=== PATIENT | female | born 2005 | race Caucasian/White ===

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

== ENCOUNTER → 2024-04-06 | Outpatient (CLI) | payer OTHER ==
--- NOTE | 2024-04-06 13:12 | CA ---
Exercise Stress Test Report Name: Jorge Pereyra Exam Date: 04/06/2024 10:58 Exam Location: [facility] Stress Ht (in): 66 Wt (lb): 128 BSA: 1.65 Ordering Phys: Wesly Castillo MD Referring Phys: Madina Cote [facility], [facility] Technologist: Db Landers Age: 18 Gender: F : 2005 Procedure CPT: Indications: R07.9,R00.2 PALPITATIONS ICD-10 Codes: Patient History: CHEST PAIN, DIFFICULTY IN BREATHING, PALPITATIONS, CURRENT SMOKER (VAPE) X 5 YEARS, ASTHMA Medications: ASTHMA INHALER Meds past 24 hrs: Pretest Chest Pain: STRESS TEST Carlos Protocol Exercise Duration (min:sec): 08:[address] Depressions (mm): Angina Score: West Score: Resting HR (bpm): 89 Peak HR (bpm): 152 Resting BP (mmHg): 104 / 69 Peak BP (mmHg): 141 / 76 MPHR: 200 Target HR: 170 % MPHR: 76 METS: 10.3 Total Dose: Peak Dose: Atropine: Double Product: 25493 BP Response: Stress Termination: Dizziness, PT UNABLE TO SAFELY CONTINUE, TEST TERMINATED Stress Symptoms: DIZZINESS,FLUSHED. Stress Summary: ECG ANALYSIS Resting ECG: Stress ECG: CONCLUSIONS Patient underwent exercise stress EKG with a Carlos protocol treadmill stress test. Patient exercised into Stage 2 for a total of minutes and 47 seconds reaching a total of 10.3 METS. Patient's maximum heart rate was 152 which represented 76% age- predicted maximum heart rate. Patient experienced dizziness and feeling flushed and unable to complete trouble test. Blood pressure adequately increase with exercise from 104 systolic up to 144. Stress EKG findings: At baseline patient's EKG showed normal sinus rhythm, normal axis, no significant ST or T wave abnormalities. At peak exercise, EKG showed significant change from baseline. Conclusions: 1. Technically inadequate stress test given inability to reach 85% maximum predicted heart rate 2. However at 76% maximum predicted heart rate, normal EKG response to exercise without evidence of inducible ischemia. 2. Fair exercise capacity. Dr. Ravinder Jara DO (Electronically Signed) Final Date: 06 Apr 2024 13:12
== END | disposition home or self-care (01) ==
LOC: RADNMMAIN 10:01
PROVIDERS: ATTEND Family Medicine
DX: R07.9 Chest pain, unspecified (principal); R00.2 Palpitations
CPT/HCPCS: 93017

== ENCOUNTER 2024-09-06 09:56 | Day surgery (SDC) | payer OTHER ==
[2024-08-31 14:02] VITALS: BMI 19.5
[~2024-09-06 09:56] MED LIST: LACTATED RINGERS 1,000 ML IV SCH
[2024-09-06] MEDS: SODIUM CHLORIDE 0.9% 1,000 ML IV SCH ×2 (10:34→17:10)
[2024-09-06] MEDS: IV FLUID CONTINUATION 1,000 ML IV ONE (10:34)
[2024-09-06 10:51] LABS: Basophils # (A) 0.1 k/uL (0-0.2); Basophils % (A) 0 %; Eosinophils # (A) 0.2 k/uL (0-0.7); Eosinophils % (A) 2 %; HCT 47.2 % (34.0-46.0); HGB 15.3 gm/dL (11.4-16.0); Lymphocytes # (A) 2.5 k/uL (1.0-4.8); Lymphocytes % (A) 22 %; MCHC 32.4 g/dL (31.0-37.0); MCV 92.4 fL (80.0-100.0); Mean Platelet Volume 9.3; Monocytes # (A) 0.3 k/uL (0-1.0); Monocytes % (A) 3 %; Neutrophils # (A) 8.3 k/uL (1.3-7.7); Neutrophils % (A) 73 %; Platelet Count 241 k/uL (150-450); RBC 5.11 m/uL (3.80-5.40); RDW 13.1 % (11.5-15.5); WBC 11.5 k/uL (3.8-10.6)
[2024-09-06 10:55] LABS: African American GFR (CKD) >90 (>60 ml/min/1.73 sqM); Anion Gap 6 mmol/L; Blood Urea Nitrogen 13 mg/dL (7-17); Calcium 9.7 mg/dL (8.4-10.2); Carbon Dioxide 29 mmol/L (22-30); Chloride 104 mmol/L (98-107); Glucose 88 mg/dL (74-99); Non-African American GFR(CKD) >90 (>60 ml/min/1.73 sqM); Potassium 4.2 mmol/L (3.5-5.1); Sodium 139 mmol/L (137-145)
[2024-09-06] MEDS: SODIUM CHLORIDE 0.9% 1,000 ML IV ONE (12:18)
[2024-09-06] MEDS ORDERED: ISOPROTERENOL 250 MCG/1.25 ML SYR IV ONE (13:56)
[2024-09-06] MEDS ORDERED: PROPOFOL 10 MG/ML 20 ML VIAL IV ONE (13:56)
[2024-09-06] MEDS ORDERED: fentaNYL (PF) 50 MCG/ML 2 ML AMP ONE (13:56)
[2024-09-06] MEDS ORDERED: MIDAZOLAM 2 MG/2 ML VIAL ONE (13:56)
--- NOTE | 2024-09-06 14:12 | P.HPCAR ---
History of Present Illness This is Dr. Wooten dictating an H/P on this patient The patient was interviewed and examined IMPRESSION / ASSESSMENT: Recurrent palpitations Recurrent presyncopal spells and syncope Tilt table test did not reveal neurocardiogenic syncope PLAN: Diagnostic EP study and radiofrequency ablation HPI Recurrent sweatiness nausea and palpitations. History of LOC No recent loss of consciousness ROS: No fever chills or rigors, no cough, phlegm or expectoration, no nausea, vomiting or diarrhea, no hematuria, dysuria, no musculoskeletal complaints, no strokes or seizures, no skin lesions. EXAMINATION: Pulse rate 71, respiratory rate 16, blood pressure 128/99 mmHg Breath sounds are clear no rhonchi no crackles Heart sounds S1-S2 normal no murmurs or gallop no rub No lower extremity edema REVIEW OF LABS, ECG & MEDICAL DATA White count 11,000, hemoglobin 15, hematocrit 47.2 Sodium 139, potassium 4.2 BUN 13 and creatinine 0.87 TSH 3.5 Physical Exam Vitals: Vital Signs Temp Pulse Resp BP BP Pulse Ox 09/06/24 12:21 71 16 128/99 98 09/06/24 10:29 98 F 93 18 111/66 127/79 98 Intake and Output 09/05/24 09/06/24 09/06/24 22:59 06:59 14:59 Intake Total 120 Balance 120 Intake: IV 120 Other: Weight 56.1 kg Past Medical History Past Medical History: Asthma, CVA/TIA, GERD/Reflux, Supraventricular Tachycardia (SVT) Additional Past Medical History / Comment(s): hepatitis b, SEE DR. WOOTEN'S H & P, History of Any Multi-Drug Resistant Organisms: None Reported Past Surgical History: Adenoidectomy, Appendectomy, Tonsillectomy Additional Past Surgical History / Comment(s): hepatitis b Past Anesthesia/Blood Transfusion Reactions: No Reported Reaction Smoking Status: Vaper - Past Family History Mother History Unknown: Yes Family Medical History: No Reported History Father Additional Family Medical History / Comment(s): Appendicitis in late 20s Physical Examination Vital Signs Temp Pulse Resp BP BP Pulse Ox 09/06/24 12:21 71 16 128/99 98 09/06/24 10:29 98 F 93 18 111/66 127/79 98 Intake and Output 09/05/24 09/06/24 09/06/24 22:59 06:59 14:59 Intake Total 120 Balance 120 Intake: IV 120 Other: Weight 56.1 kg Results 09/06/24 10:21 09/06/24 10:21 CBC 09/06/24 Range/Units 10:21 WBC 11.5 H (3.8-10.6) k/uL RBC 5.11 (3.80-5.40) m/uL Hgb 15.3 (11.4-16.0) gm/dL Hct 47.2 H (34.0-46.0) % Plt Count 241 (150-450) k/uL Comprehensive Metabolic Panel 09/06/24 Range/Units 10:21 Sodium 139 (137-145) mmol/L Potassium 4.2 (3.5-5.1) mmol/L Chloride 104 (98-107) mmol/L Carbon Dioxide 29 (22-30) mmol/L BUN 13 (7-17) mg/dL Creatinine 0.87 (0.52-1.04) mg/dL Glucose 88 (74-99) mg/dL Calcium 9.7 (8.4-10.2) mg/dL Current Medications Generic Name Dose Route Start Last Admin Trade Name Freq PRN Reason Stop Dose Admin Sodium Chloride 1,000 mls @ 20 mls/hr 09/06/24 06:05 09/06/24 10:34 Saline 0.9% IV 10/06/24 06:04 20 mls/hr .Q24H ZACHARY Administration Sodium Chloride 1,000 mls @ 20 mls/hr 09/06/24 06:05 Saline 0.9% IV 10/06/24 06:04 .Q24H ZACHARY Lactated Ringer's 1,000 mls @ 20 mls/hr 09/06/24 06:05 Lactated Ringers IV 10/06/24 06:04 .Q24H ZACHARY Intake and Output 09/05/24 09/06/24 09/06/24 22:59 06:59 14:59 Intake Total 120 Balance 120 Intake: IV 120 Other: Weight 56.1 kg Patient Weight 09/07/24 06:59 Weight 56.1 kg 09/06/24 10:21 09/06/24 10:21
--- NOTE | 2024-09-06 14:15 | P.EPPROC ---
- EP Procedure Note Electrophysiology Procedure Note: Diagnosis Recurrent syncope Twelve-lead EKG shows sinus rhythm normal OK and narrow QRS no delta waves normal QT interval Tilt table test per protocol Baseline heart rate 76 beats minute, baseline blood pressure 119/74 mmHg Patient was tilted upright at an angle of 70 degrees per protocol. Heart rate increased to 118 beats a minute of blood pressure was elevated She complained of feeling hot numbness around the mouth. Patient was crying, mouth was tingling hands with tingling face was tingling muscles were twitching all over Heart rate remained between 120 230 beats minute blood pressure was also elevated When she was laid supine all symptoms improved Heart rate came down to 104 beats minute and blood pressure 128/80 mmHg Impression Normal twelve-lead EKG No evidence for neurocardiogenic syncope Elevated heart rate and blood pressure with upright position
[2024-09-06] MEDS: LIDOCAINE 1% INJ 10MG/ML (20 ML MDV) SQ ONE (14:24)
--- NOTE | 2024-09-06 16:03 | P.EPPROC ---
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 Written informed consent was obtained prior to the procedure. Venous sheaths were placed in the left femoral vein and via these diagnostic catheters were positioned in the high right atrium His bundle area right ventricle and the coronary sinus. The study was performed both at baseline and on Isopril high-dose. Sinus node recovery times were 856, 813 and 759 ms AV node Wenckebach block 410 ms VA Wenckebach block 510 ms Aniyah response to Para-Hisian pacing Occasional right bundle branch block aberrancy with atrial pacing No arrhythmias induced with atrial stimulation at the baseline state High-dose Isopril infused A full EP study performed with straight pacing from the high right atrium, coronary sinus and right ventricle Extrastimulation up to triple extrastimuli from the high right atrium and the coronary sinus Extrastimulation from the right ventricle Burst stimulation from the high right atrium, coronary sinus and right ventricle No inducible arrhythmias No evidence for atrial tachycardia, AV aniyah reentry, accessory pathway conduction or atrial fibrillation or ventricular tachycardia All catheters removed hemostasis achieved with Vascade closure device Patient tolerated procedure well without any acute complications
[2024-09-06] MEDS ORDERED: BENZONATATE 100 MG CAP PO PRN (16:05)
[2024-09-06] MEDS: ACETAMINOPHEN IV (For NPO) 1,000 MG in EMPTY BAG 1 BAG IVPB ONE (17:13)
--- NOTE | 2024-09-06 17:21 | P.PRLE ---
RE: Jorge Pereyra Dear Katrina Jorge Pereyra has a history of dizzy spells near syncope and palpitations. His symptoms are severe enough that once when she was on a flight, an emergency landing had to be performed. She underwent a tilt table test which showed elevation of heart rate and blood pressure, consistent with anxiety. She then underwent a diagnostic EP study. We performed a very detailed study on and off Isopril and there were no inducible supraventricular or ventricular arrhythmias. While she may have vasovagal syncope/presyncope, this could not be induced on the tilt table test despite the fact that her heart rate was elevated. I would recommend a psychological /psychiatric evaluation to help her Thank you for entrusting me with the care of the patient Warm regards Sincerely Gino Wooten transfer tech
[2024-09-06] MEDS: PROPRANOLOL 20 MG TAB PO SCH (19:56)
[2024-09-07 01:41] VITALS: RESP 18
[2024-09-07] MEDS: ACETAMINOPHEN TAB 325 MG TAB PO PRN (09:32)
[2024-09-07 09:52] VITALS: BP 100/68; PULSE 72; TEMP 97.6
--- NOTE | 2024-09-07 09:56 | P.DS ---
Providers Date of admission: 09/06/24 Attending physician: Gino Wooten Primary care physician: Katrina [facility] Course: Patient is a 19-year-old female who underwent tilt table testing and EP study for palpitations and presyncope. No inducible arrhythmias found on EP study despite high dose Isopril. Tilt table testing showed elevations in heart rate with upright tilting with elevations in blood pressure. No evidence for neurocardiogenic syncope. Patient interviewed and examined resting comfortably in bed. No complaints overnight. GENERAL: Well-appearing, well-nourished and in no acute distress. NECK: Supple without JVD or thyromegaly. LUNGS: Breath sounds clear to auscultation bilaterally. Respiration equal and unlabored. No wheezes, rales or rhonchi. HEART: Regular rate and rhythm without murmurs, rubs or gallops. S1 and S2 heard. EXTREMITIES: Normal range of motion, no edema. No clubbing or cyanosis. Peripheral pulses intact and strong. Left groin site shows no evidence of hematoma. TELEMETRY: Sinus rhythm overnight IMPRESSION: Palpitations, no arrhythmias inducible on EP study Presyncope, not inducible on tilt table testing Elevation in heart rate and blood pressure on tilt table testing PLAN: Patient may be discharged Outpatient follow-up in 1 week I am dictating on behalf of Dr Gino Wooten's history/physical and assessment/plan. Plan - Discharge Summary Discharge Rx Participant: Yes New Discharge Prescriptions: No Action Benzonatate [Tessalon Perles] 100 mg PO TID PRN PRN Reason: Cough Propranolol [Inderal] 20 mg PO BID Discharge Medication List Benzonatate [Tessalon Perles] 100 mg PO TID PRN 08/31/24 [History] Propranolol [Inderal] 20 mg PO BID 08/31/24 [History] Follow up Appointment(s)/Referral(s): Gino Wooten MD [STAFF PHYSICIAN] - 1 Week Patient Instructions/Handouts: Tilt Table Test (DC) Discharge Disposition: HOME SELF-CARE
== END 2024-09-07 12:33 | disposition home or self-care (01) ==
LOC: CATHEP 09:56 → 6NMEDSUR 15:09 → CATHEP 09-07 12:33
PROVIDERS: ATTEND Internal Medicine Clinical Cardiac Electrophysiology
DX: I47.10 Supraventricular tachycardia, unspecified (principal); I45.10 Unspecified right bundle-branch block; I44.1 Atrioventricular block, second degree; J45.909 Unspecified asthma, uncomplicated; K21.9 Gastro-esophageal reflux disease without esophagitis; I67.9 Cerebrovascular disease, unspecified; G40.89 Other seizures; F17.200 Nicotine dependence, unspecified, uncomplicated; U07.0 Vaping-related disorder; Z90.89 Acquired absence of other organs; Z90.49 Acquired absence of other specified parts of digestive tract; Z86.73 Personal history of transient ischemic attack (TIA), and cerebral infarction without residual deficits; Z79.1 Long term (current) use of non-steroidal anti-inflammatories (NSAID); Z79.899 Other long term (current) drug therapy; Z88.8 Allergy status to other drugs, medicaments and biological substances
CPT/HCPCS: 93623; 93621; 93620; 93660; 86900; 86901; 80048; 84443; 85025; 86850; 81025; C1894; C1769; C1760; C1730 ×3; J2250; J2003; J3010; J0131; J2704

== ENCOUNTER 2024-09-23 23:54 | Emergency (ER) | payer OTHER ==
[2024-09-24 00:02] VITALS: TEMP 98.2
[2024-09-24 00:22] LABS: Basophils % (A) 0 %; Eosinophils # (A) 0.2 k/uL (0-0.7); Eosinophils % (A) 2 %; HCT 43.1 % (34.0-46.0); Lymphocytes # (A) 2.9 k/uL (1.0-4.8); Lymphocytes % (A) 29 %; MCHC 32.6 g/dL (31.0-37.0); MCV 92.1 fL (80.0-100.0); Mean Platelet Volume 9.7; Monocytes # (A) 0.4 k/uL (0-1.0); Monocytes % (A) 4 %; Neutrophils # (A) 6.4 k/uL (1.3-7.7); Neutrophils % (A) 64 %; Platelet Count 213 k/uL (150-450); RBC 4.68 m/uL (3.80-5.40); RDW 12.9 % (11.5-15.5)
[2024-09-24 00:44] LABS: ALT 10 U/L (4-34); AST 22 U/L (14-36); African American GFR (CKD) >90 (>60 ml/min/1.73 sqM); Albumin 4.6 g/dL (3.5-5.0); Alkaline Phosphatase 46 U/L (38-126); Amylase 63 U/L (30-110); Anion Gap 5 mmol/L; Blood Urea Nitrogen 12 mg/dL (7-17); Calcium 9.5 mg/dL (8.4-10.2); Carbon Dioxide 27 mmol/L (22-30); Chloride 106 mmol/L (98-107); Glucose 84 mg/dL (74-99); Lipase 135 U/L (23-300); Non-African American GFR(CKD) >90 (>60 ml/min/1.73 sqM); Potassium 4.7 mmol/L (3.5-5.1); Sodium 138 mmol/L (137-145); Total Bilirubin 0.5 mg/dL (0.2-1.3); Total Protein 7.1 g/dL (6.3-8.2)
--- NOTE | 2024-09-24 01:15 | ED ---
Abdominal Pain HPI - General Chief Complaint: Abdominal Pain Stated Complaint: abd pain Time Seen by Provider: 09/24/24 01:13 Source: patient, RN notes reviewed Mode of arrival: EMS Limitations: no limitations - History of Present Illness Initial Comments: 19-year-old female with history of endometriosis presenting to the ER with chief complaint of pelvic pain x 1 day. States she started her menstrual period yesterday and is having severe pelvic cramping today radiating to the back and down the legs. States this feels similar to previous menstrual cramping on first 1 to 2 days of menstrual period. States she has taken Tylenol and Midol today with no relief and is requesting pain control today. Denies nausea, vomiting, vaginal discharge, fever, urinary symptoms, . - Related Data Home Medications Medication Instructions Recorded Confirmed Benzonatate [Tessalon Perles] 100 mg PO TID PRN 08/31/24 09/06/24 Propranolol [Inderal] 20 mg PO BID 08/31/24 09/06/24 Allergies Allergy/AdvReac Type Severity Reaction Status Date / Time amphetamine [From Adderall] Allergy Unknown Verified 09/23/24 23:58 dextroamphetamine Allergy Unknown Verified 09/23/24 23:58 [From Adderall] ibuprofen AdvReac dizzy Verified 09/23/24 23:58 [place] [employer]ESS[employer] Allergy Rash/Hives Uncoded 09/23/24 23:58 Review of Systems ROS Statement: Those systems with pertinent positive or pertinent negative responses have been documented in the HPI. ROS Other: All systems not noted in ROS Statement are negative. Past Medical History Past Medical History: Asthma, CVA/TIA, GERD/Reflux, Supraventricular Tachycardia (SVT) Additional Past Medical History / Comment(s): hepatitis b, SEE [facility]IE[facility]S H & P, History of Any Multi-Drug Resistant Organisms: None Reported Past Surgical History: Adenoidectomy, Appendectomy, Tonsillectomy Additional Past Surgical History / Comment(s): hepatitis b Past Anesthesia/Blood Transfusion Reactions: No Reported Reaction Past Psychological History: Bipolar, Depression Smoking Status: Vaper Past Alcohol Use History: Occasional Past Drug Use History: Marijuana - Past Family History Mother History Unknown: Yes Family Medical History: No Reported History Father Additional Family Medical History / Comment(s): Appendicitis in late 20s General Exam Limitations: no limitations General appearance: alert, in no apparent distress Head exam: Present: atraumatic, normocephalic, normal inspection GI/Abdominal exam: Present: soft, normal bowel sounds. Absent: distended, tenderness, guarding, rebound, rigid Back exam: Present: normal inspection. Absent: CVA tenderness (R), CVA tenderness (L), rash noted Neurological exam: Present: alert, oriented X3 Psychiatric exam: Present: normal affect, normal mood Skin exam: Present: warm, dry, intact, normal color. Absent: rash Course Vital Signs 09/23/24 23:58 Temperature 98.2 F Pulse Rate 53 L Respiratory 18 Rate Blood Pressure 119/82 O2 Sat by Pulse 98 Oximetry Medical Decision Making - Medical Decision Making Was pt. sent in by a medical professional or institution (LORENZO Velez, ASSISTANT CUSTOMER SERVICE MANAGER, urgent care, hospital, or snf...) When possible be specific @ -No Did you speak to anyone other than the patient for history (EMS, parent, family, police, friend...)? What history was obtained from this source @ -No Did you review nursing and triage notes (agree or disagree)? Why? @ -I reviewed and agree with nursing and triage notes Were old charts reviewed (outside hosp., previous admission, EMS record, old EKG, old radiological studies, urgent care reports/EKG's, snf records)? Report findings @ -No old charts were reviewed Differential Diagnosis (chest pain, altered mental status, abdominal pain women, abdominal pain men, vaginal bleeding, weakness, fever, dyspnea, syncope, headache, dizziness, GI bleed, back pain, seizure, CVA, palpatations, mental health, musculoskeletal)? @ -Differential Abdominal Pain Women: Appendicitis, Cholecystitis, diverticulosis, ischemic bowel, pancreatitis, hepatitis, UTI, gastroenteritis, AAA, incarcerated hernia, bowel obstruction, constipation, inflammatory bowel, hepatitis, peptic ulcer disease, splenic infarction, perforated viscus, vulvitis, ovarian torsion, PID, kidney stone, placenta abruption, this is not meant to be an all-inclusive list EKG interpreted by me (3pts min.). @ -None X-rays interpreted by me (1pt min.). @ -None done CT interpreted by me (1pt min.). @ -None done U/S interpreted by me (1pt. min.). @ -None done What testing was considered but not performed or refused? (CT, X-rays, U/S, labs)? Why? @ -Urinalysis/urine ordered but patient refused What meds were considered but not given or refused? Why? @ -None Did you discuss the management of the patient with other professionals (professionals i.e. , PA, ASSISTANT CUSTOMER SERVICE MANAGER, lab, RT, psych nurse, nursing home social worker, automotive salesperson, teacher, tactical debriefer officer, disease case manager rn)? Give summary @ -No Was smoking cessation discussed for >3mins.? @ -No Was critical care preformed (if so, how long)? @ -No Were there social determinants of health that impacted care today? How? (Homelessness, low income, unemployed, alcoholism, drug addiction, transportation, low edu. Level, literacy, decrease access to med. care, care home, rehab)? @ -No Was there de-escalation of care discussed even if they declined (Discuss DNR or withdrawal of care, Hospice)? DNR status @ -No What co-morbidities impacted this encounter? (DM, HTN, Smoking, COPD, CAD, Cancer, CVA, ARF, Chemo, Hep., AIDS, mental health diagnosis, sleep apnea, morbid obesity)? @ -None Was patient admitted / discharged? Hospital course, mention meds given and route, prescriptions, significant lab abnormalities, going to OR and other pertinent info. @ -Discharge. This is a 19-year-old female with history of endometriosis presenting with pelvic pain x 1 day. Patient started menstrual period yesterday. Vital signs remarkable for bradycardia, otherwise unremarkable. Abdomen is soft and nontender. Patient is provided with IV fluids and Toradol. Lab work including CBC, CMP, lactic acid unremarkable. Urinalysis/urine ordered however patient states she cannot give a sample. Patient reports symptoms have improved and would like to be discharged. I believe it is safe to discharge patient home with strict return precautions. Case was discussed with my ED attending Dr. Daily. Patient discharged in stable condition. Undiagnosed new problem with uncertain prognosis? @ -No Drug Therapy requiring intensive monitoring for toxicity (Heparin, Nitro, Insulin, Cardizem)? @ -No Were any procedures done? @ -No Diagnosis/symptom? @ -Dysmenorrhea Acute, or Chronic, or Acute on Chronic? @ -Acute Uncomplicated (without systemic symptoms) or Complicated (systemic symptoms)? @ -Uncomplicated Side effects of treatment? @ -No Exacerbation, Progression, or Severe Exacerbation? @ -No Poses a threat to life or bodily function? How? (Chest pain, USA, ID, pneumonia, PE, COPD, DKA, ARF, appy, cholecystitis, CVA, Diverticulitis, Homicidal, Suicidal, threat to staff... and all critical care pts) @ -No - Lab Data Result diagrams: 09/24/24 00:10 09/24/24 00:10 Lab Results 09/24/24 09/24/24 09/24/24 Range/Units 00:10 00:10 00:10 WBC 10.0 (3.8-10.6) k/uL RBC 4.68 (3.80-5.40) m/uL Hgb 14.0 (11.4-16.0) gm/dL Hct 43.1 (34.0-46.0) % MCV 92.1 (80.0-100.0) fL MCH 30.0 (25.0-35.0) pg MCHC 32.6 (31.0-37.0) g/dL RDW 12.9 (11.5-15.5) % Plt Count 213 (150-450) k/uL MPV 9.7 Neutrophils % 64 % Lymphocytes % 29 % Monocytes % 4 % Eosinophils % 2 % Basophils % 0 % Neutrophils # 6.4 (1.3-7.7) k/uL Lymphocytes # 2.9 (1.0-4.8) k/uL Monocytes # 0.4 (0-1.0) k/uL Eosinophils # 0.2 (0-0.7) k/uL Basophils # 0.0 (0-0.2) k/uL Sodium 138 (137-145) mmol/L Potassium 4.7 (3.5-5.1) mmol/L Chloride 106 (98-107) mmol/L Carbon Dioxide 27 (22-30) mmol/L Anion Gap 5 mmol/L BUN 12 (7-17) mg/dL Creatinine 0.84 (0.52-1.04) mg/dL Est GFR (CKD-EPI)AfAm >90 (>60 ml/min/1.73 sqM) Est GFR (CKD-EPI)NonAf >90 (>60 ml/min/1.73 sqM) Glucose 84 (74-99) mg/dL Plasma Lactic Acid Broderick 1.3 (0.7-2.0) mmol/L Calcium 9.5 (8.4-10.2) mg/dL Total Bilirubin 0.5 (0.2-1.3) mg/dL AST 22 (14-36) U/L ALT 10 (4-34) U/L Alkaline Phosphatase 46 (38-126) U/L Total Protein 7.1 (6.3-8.2) g/dL Albumin 4.6 (3.5-5.0) g/dL Amylase 63 (30-110) U/L Lipase 135 (23-300) U/L Disposition Clinical Impression: Dysmenorrhea Disposition: HOME SELF-CARE Condition: Stable Instructions (If sedation given, give patient instructions): Dysmenorrhea (ED) Additional Instructions: Please return to the Emergency Department if symptoms worsen or any other concerns. Is patient prescribed a controlled substance at d/c from ED?: No Referrals: Katrina Borja DO [Primary Care Provider] - 1-2 days Time of Disposition: 02:48
[2024-09-24] MEDS: KETOROLAC 15 MG/ML 1 ML VIAL IVP STA (01:43)
[2024-09-24] MEDS: SODIUM CHLORIDE 0.9% 500 ML 500 ML IV STA (01:46)
[2024-09-24 03:07] VITALS: BP 110/63; PULSE 82; RESP 16
[2024-09-24 03:15] LABS: Appearance,Urine Turbid (Clear); Bacteria,Urine Rare /hpf; Bilirubin,Urine Negative (Negative); Blood,Urine Moderate (Negative); Color,Urine Light Yellow; Glucose,Urine (UA) Negative (Negative); Ketones,Urine 1+ (Negative); Leukocyte Esterase,Urine Trace (Negative); Mucus,Urine Occasional /hpf; Nitrite,Urine Negative (Negative); Protein,Urine Trace (Negative); RBC,Urine 6 /hpf (0-5); Specific Gravity,Urine 1.032 (1.001-1.035); Squamous Epithelial Cell,Urine 1 /hpf (0-4); Urobilinogen,Urine <2.0 mg/dL (<2.0); WBC,Urine 6 /hpf (0-5)
== END 2024-09-24 03:02 | disposition home or self-care (01) ==
LOC: EC 23:54
DX: N94.6 Dysmenorrhea, unspecified (principal); F17.290 Nicotine dependence, other tobacco product, uncomplicated; Z88.8 Allergy status to other drugs, medicaments and biological substances; Z88.6 Allergy status to analgesic agent
CPT/HCPCS: 36415; 80053; 82150; 83605; 83690; 85025; 81001; 81025; 99284; 96374; 96361; J1885

== ENCOUNTER 2024-11-09 17:57 | Emergency (ER) | payer OTHER ==
[2024-11-09 18:35] LABS: Basophils # (A) 0.1 k/uL (0-0.2); Basophils % (A) 1 %; Eosinophils # (A) 0.1 k/uL (0-0.7); Eosinophils % (A) 1 %; HCT 44.7 % (34.0-46.0); HGB 14.8 gm/dL (11.4-16.0); Lymphocytes % (A) 38 %; MCH 30.3 pg (25.0-35.0); MCV 91.7 fL (80.0-100.0); Mean Platelet Volume 8.9; Monocytes # (A) 0.5 k/uL (0-1.0); Monocytes % (A) 5 %; Neutrophils # (A) 5.8 k/uL (1.3-7.7); Neutrophils % (A) 54 %; Platelet Count 252 k/uL (150-450); RBC 4.88 m/uL (3.80-5.40); RDW 12.5 % (11.5-15.5); WBC 10.7 k/uL (3.8-10.6)
--- NOTE | 2024-11-09 18:39 | XR ---
EXAMINATION TYPE: XR chest 2V DATE OF EXAM: 11/09/2024 6:35 PM COMPARISON: Previous chest radiograph 01/19/2021. CLINICAL INDICATION: Female, 19 years old with history of sob; [facility] TECHNIQUE: XR chest 2V Frontal and lateral views of the chest. FINDINGS: Lungs/Pleura: There is no evidence of pleural effusion, focal consolidation, or pneumothorax. Pulmonary vascularity: Unremarkable. Heart/mediastinum: Cardiomediastinal silhouette is unremarkable. Musculoskeletal: No acute osseous pathology. Other findings: None IMPRESSION: No acute cardiopulmonary disease/process. [facility], , 11/09/2024 6:37 PM
[2024-11-09 18:40] LABS: ALT 13 U/L (4-34); AST 18 U/L (14-36); African American GFR (CKD) >90 (>60 ml/min/1.73 sqM); Albumin 4.6 g/dL (3.5-5.0); Alkaline Phosphatase 51 U/L (38-126); Anion Gap 8 mmol/L; Blood Urea Nitrogen 13 mg/dL (7-17); Calcium 9.8 mg/dL (8.4-10.2); Carbon Dioxide 22 mmol/L (22-30); Chloride 107 mmol/L (98-107); Glucose 117 mg/dL (74-99); Non-African American GFR(CKD) >90 (>60 ml/min/1.73 sqM); Potassium 4.2 mmol/L (3.5-5.1); Sodium 137 mmol/L (137-145); Total Bilirubin 0.3 mg/dL (0.2-1.3)
[2024-11-09 19:54] VITALS: RESP 18
--- NOTE | 2024-11-09 20:19 | ED ---
General Adult HPI - General Chief complaint: Shortness of Breath Stated complaint: seizure Time Seen by Provider: 11/09/24 19:23 Source: patient Mode of arrival: wheelchair Limitations: no limitations - History of Present Illness Initial comments: 19-year-old female presenting for evaluation after syncopal episode. Patient states that she was at a friend's house watching TV when she started to feel "weird" she then states that she passed out, however she remembers all of the incident. She states that she felt her body twitching at times. She does have history of POTS and SVT, she has had an ablation in the past. States that later on she started to had some numbness in the face, hands, and feet. This has since resolved. States that she feels well at this time. No chest pain, difficulty breathing, abdominal pain, nausea, vomiting, headache, vision or hearing changes, weakness - Related Data Home Medications Medication Instructions Recorded Confirmed Benzonatate [Tessalon Perles] 100 mg PO TID PRN 08/31/24 09/06/24 Propranolol [Inderal] 20 mg PO BID 08/31/24 09/06/24 Allergies Allergy/AdvReac Type Severity Reaction Status Date / Time amphetamine [From Adderall] Allergy Unknown Verified 09/23/24 23:58 dextroamphetamine Allergy Unknown Verified 09/23/24 23:58 [From Adderall] ibuprofen AdvReac dizzy Verified 09/23/24 23:58 [place] [employer] Allergy Rash/Hives Uncoded 09/23/24 23:58 Review of Systems ROS Statement: Those systems with pertinent positive or pertinent negative responses have been documented in the HPI. ROS Other: All systems not noted in ROS Statement are negative. Past Medical History Past Medical History: Asthma, Fibromyalgia, GERD/Reflux, Supraventricular Tachycardia (SVT) Additional Past Medical History / Comment(s): hepatitis b, SEE [facility], cardic ablation History of Any Multi-Drug Resistant Organisms: None Reported Past Surgical History: Adenoidectomy, Appendectomy, Tonsillectomy Additional Past Surgical History / Comment(s): hepatitis b, cardiac ablation Past Anesthesia/Blood Transfusion Reactions: No Reported Reaction Past Psychological History: Bipolar, Depression Smoking Status: Vaper Past Alcohol Use History: Occasional Past Drug Use History: Marijuana - Past Family History Mother History Unknown: Yes Family Medical History: No Reported History Father Additional Family Medical History / Comment(s): Appendicitis in late 20's General Exam Limitations: no limitations General appearance: alert, in no apparent distress Head exam: Present: atraumatic, normocephalic, normal inspection Eye exam: Present: normal appearance, EOMI Neck exam: Present: normal inspection. Absent: meningismus Respiratory exam: Present: normal lung sounds bilaterally. Absent: respiratory distress, wheezes, rales, rhonchi, stridor Cardiovascular Exam: Present: regular rate, normal rhythm, normal heart sounds. Absent: systolic murmur, diastolic murmur, rubs, gallop, clicks Extremities exam: Present: normal inspection, full ROM Neurological exam: Present: alert, oriented X3 Expanded Patient oriented to: Present: person, place, time Speech: Present: fluid speech Eye Response: (4) open spontaneously Motor Response: (6) obeys commands Verbal Response: (5) oriented [place] Total: 15 Psychiatric exam: Present: normal affect, normal mood Skin exam: Present: warm, dry Course Vital Signs 11/09/24 11/09/24 11/09/24 18:00 19:52 20:25 Temperature 98.3 F 98.0 F Pulse Rate 121 H 96 76 Respiratory 28 H 18 18 Rate Blood Pressure 119/81 111/71 101/66 O2 Sat by Pulse 98 97 100 Oximetry Medical Decision Making - Medical Decision Making Was pt. sent in by a medical professional or institution (LORENZO Velez, [employer] H[employer]CH[employer]IC, urgent care, hospital, or detention...) When possible be specific @ -No Did you speak to anyone other than the patient for history (EMS, parent, family, police, friend...)? What history was obtained from this source @ -No Did you review nursing and triage notes (agree or disagree)? Why? @ -I reviewed and agree with nursing and triage notes Were old charts reviewed (outside hosp., previous admission, EMS record, old EKG, old radiological studies, urgent care reports/EKG's, detention records)? Report findings @ -No old charts were reviewed Differential Diagnosis (chest pain, altered mental status, abdominal pain women, abdominal pain men, vaginal bleeding, weakness, fever, dyspnea, syncope, headache, dizziness, GI bleed, back pain, seizure, CVA, palpatations, mental health, musculoskeletal)? @ -MDM Differential Syncope: Valvular disease, hypertrophic cardiomyopathy, pulmonary embolism, tamponade, tachycardia, bradycardia, MT, hypovolemia, hemorrhage, dissection, anemia, intracranial hemorrhage, seizure, hypoglycemia, carbon monoxide poisoning this is not meant to be an all-inclusive list. EKG interpreted by me (3pts min.). @ -EKG shows sinus tachycardia ventricular rate 101. MO interval 121. QRS 77. QT 335. QTc 393. X-rays interpreted by me (1pt min.). @ -Chest x-ray shows no acute cardiopulmonary process CT interpreted by me (1pt min.). @ -None done U/S interpreted by me (1pt. min.). @ -None done What testing was considered but not performed or refused? (CT, X-rays, U/S, labs)? Why? @ -None What meds were considered but not given or refused? Why? @ -None Did you discuss the management of the patient with other professionals (professionals i.e. , PA, DROP HAMMER MECHANIC, lab, RT, psych nurse, social service worker, general lot attendant, teacher, executive vice president and chief operating officer, manager of case)? Give summary @ -No Was smoking cessation discussed for >3mins.? @ -No Was critical care preformed (if so, how long)? @ -No Were there social determinants of health that impacted care today? How? (Homelessness, low income, unemployed, alcoholism, drug addiction, transportat ion, low edu. Level, literacy, decrease access to med. care, nursing home, rehab)? @ -No Was there de-escalation of care discussed even if they declined (Discuss DNR or withdrawal of care, Hospice)? DNR status @ -No What co-morbidities impacted this encounter? (DM, HTN, Smoking, COPD, CAD, Cancer, CVA, ARF, Chemo, Hep., AIDS, mental health diagnosis, sleep apnea, morbid obesity)? @ -None Was patient admitted / discharged? Hospital course, mention meds given and route, prescriptions, significant lab abnormalities, going to OR and other pertinent info. @ -19-year-old female presenting for evaluation after syncopal episode. Patient has history of SVT and POTS. Workup is initiated by triage. WBC 10.7. Negative hCG. Negative chest x-ray. EKG shows sinus tachycardia with a rate of 101. Patient is later evaluated by myself. She reports that she is feeling much better at this time. She would like to go home. Episode likely related to the patient's POTS and/or SVT. Patient is instructed to follow-up with her cad technician. Follow-up with PCP. Report back to ER with any new or worsening symptoms. Discussed return parameters and answered all questions. Patient conveyed verbal understanding and agreed to the plan. I discussed this case in detail with my attending Dr. Leigh Undiagnosed new problem with uncertain prognosis? @ -No Drug Therapy requiring intensive monitoring for toxicity (Heparin, Nitro, Insulin, Cardizem)? @ -No Were any procedures done? @ -No Diagnosis/symptom? @ -Syncope Acute, or Chronic, or Acute on Chronic? @ -Acute Uncomplicated (without systemic symptoms) or Complicated (systemic symptoms)? @ -Uncomplicated Side effects of treatment? @ -No Exacerbation, Progression, or Severe Exacerbation? @ -No Poses a threat to life or bodily function? How? (Chest pain, [place], MT, pneumonia, PE, COPD, DKA, ARF, appy, cholecystitis, CVA, Diverticulitis, Homicidal, Suicidal, threat to staff... and all critical care pts) @ -Low likelihood - Lab Data Result diagrams: 11/09/24 18:14 11/09/24 18:14 Lab Results 11/09/24 11/09/24 11/09/24 Range/Units 18:14 18:14 19:51 WBC 10.7 H (3.8-10.6) k/uL RBC 4.88 (3.80-5.40) m/uL Hgb 14.8 (11.4-16.0) gm/dL Hct 44.7 (34.0-46.0) % MCV 91.7 (80.0-100.0) fL MCH 30.3 (25.0-35.0) pg MCHC 33.0 (31.0-37.0) g/dL RDW 12.5 (11.5-15.5) % Plt Count 252 (150-450) k/uL MPV 8.9 Neutrophils % 54 % Lymphocytes % 38 % Monocytes % 5 % Eosinophils % 1 % Basophils % 1 % Neutrophils # 5.8 (1.3-7.7) k/uL Lymphocytes # 4.0 (1.0-4.8) k/uL Monocytes # 0.5 (0-1.0) k/uL Eosinophils # 0.1 (0-0.7) k/uL Basophils # 0.1 (0-0.2) k/uL Sodium 137 (137-145) mmol/L Potassium 4.2 (3.5-5.1) mmol/L Chloride 107 (98-107) mmol/L Carbon Dioxide 22 (22-30) mmol/L Anion Gap 8 mmol/L BUN 13 (7-17) mg/dL Creatinine 0.85 (0.52-1.04) mg/dL Est GFR (CKD-EPI)AfAm >90 (>60 ml/min/1.73 sqM) Est GFR (CKD-EPI)NonAf >90 (>60 ml/min/1.73 sqM) Glucose 117 H (74-99) mg/dL Calcium 9.8 (8.4-10.2) mg/dL Total Bilirubin 0.3 (0.2-1.3) mg/dL AST 18 (14-36) U/L ALT 13 (4-34) U/L Alkaline Phosphatase 51 (38-126) U/L Total Protein 7.0 (6.3-8.2) g/dL Albumin 4.6 (3.5-5.0) g/dL HCG, Qual Not Detected Disposition Clinical Impression: Syncope Disposition: HOME SELF-CARE Condition: Good Instructions (If sedation given, give patient instructions): Syncope (ED) Additional Instructions: Follow-up with PCP and cardiology. Report back to ER with any new or worsening symptoms. Is patient prescribed a controlled substance at d/c from ED?: No Referrals: Katrina Borja DO [Primary Care Provider] - 1-2 days Gino Marie MD [STAFF PHYSICIAN] - 1-2 days Time of Disposition: 20:19
[2024-11-09 20:26] VITALS: BP 101/66; PULSE 76; TEMP 98
== END 2024-11-09 20:26 | disposition home or self-care (01) ==
LOC: EC 17:57
DX: R55 Syncope and collapse (principal); R00.0 Tachycardia, unspecified; F17.290 Nicotine dependence, other tobacco product, uncomplicated; Z88.6 Allergy status to analgesic agent; Z88.8 Allergy status to other drugs, medicaments and biological substances
CPT/HCPCS: 36415; 71046; 80053; 84703; 85025; 93005; 99285

== ENCOUNTER 2025-05-29 02:32 | Emergency (ER) | payer OTHER ==
--- NOTE | 2025-05-29 02:55 | ED ---
ENT HPI - General Chief complaint: Dental/Oral Stated complaint: jaw pain Time Seen by Provider: 05/29/25 02:36 Source: patient, RN notes reviewed Mode of arrival: ambulatory Limitations: no limitations - History of Present Illness Initial comments: This is a 19-year-old female who presents to the emergency department for left sided facial pain. States that it started about 10 hours ago. Pain started around her gums into the mouth and has started to radiate up into the ear and head. Pain is worse if she tries to open her mouth or eat. It is also worse to the touch. The pain is hitting her in waves, but states that it is present more than it is not. She has tried taking Tylenol and using Orajel without any relief. - Related Data Home Medications Medication Instructions Recorded Confirmed Benzonatate [Tessalon Perles] 100 mg PO TID PRN 08/31/24 09/06/24 Propranolol [Inderal] 20 mg PO BID 08/31/24 09/06/24 Previous Rx's Medication Instructions Recorded Amoxic-Pot Clav 875-125Mg 1 tab PO Q12HR 7 Days #14 tab 05/29/25 [Augmentin 875-125] Ketorolac [Toradol] 10 mg PO Q6HR PRN #15 tab 05/29/25 carBAMazepine [TEGretol] 200 mg PO Q12H #30 tablet 05/29/25 Allergies Allergy/AdvReac Type Severity Reaction Status Date / Time amphetamine [From Adderall] Allergy Unknown Verified 05/29/25 02:36 dextroamphetamine Allergy Unknown Verified 05/29/25 02:36 [From Adderall] ibuprofen AdvReac dizzy Verified 05/29/25 02:36 [place] [employer] Allergy Rash/Hives Uncoded 09/23/24 23:58 Review of Systems ROS Statement: Those systems with pertinent positive or pertinent negative responses have been documented in the HPI. ROS Other: All systems not noted in ROS Statement are negative. Past Medical History Past Medical History: Asthma, Fibromyalgia, GERD/Reflux, Supraventricular Tachycardia (SVT) Additional Past Medical History / Comment(s): hepatitis b, SEE DR[facility] H & P, cardic ablation History of Any Multi-Drug Resistant Organisms: None Reported Past Surgical History: Adenoidectomy, Appendectomy, Tonsillectomy Additional Past Surgical History / Comment(s): hepatitis b, cardiac ablation Past Anesthesia/Blood Transfusion Reactions: No Reported Reaction Past Psychological History: Bipolar, Depression Smoking Status: Vaper Past Alcohol Use History: Occasional Past Drug Use History: Marijuana - Past Family History Mother History Unknown: Yes Family Medical History: No Reported History Father Additional Family Medical History / Comment(s): Appendicitis in late 20's General Exam Limitations: no limitations General appearance: alert, in no apparent distress Head exam: Present: atraumatic, normocephalic, normal inspection ENT exam: Present: TM's normal bilaterally, normal external ear exam, other (Tenderness along the left buccal region and left jaw. No notable dental caries. No palpable dental abscess.) Respiratory exam: Present: normal lung sounds bilaterally. Absent: respiratory distress, wheezes, rales, rhonchi, stridor Cardiovascular Exam: Present: regular rate, normal rhythm Neurological exam: Present: alert, oriented X3, CN II-XII intact Psychiatric exam: Present: normal affect, normal mood Skin exam: Present: warm, dry, intact, normal color. Absent: rash Course Vital Signs 05/29/25 05/29/25 02:33 04:43 Temperature 98.4 F 97.8 F Pulse Rate 114 H 66 Respiratory 20 18 Rate Blood Pressure 150/81 120/75 O2 Sat by Pulse 98 98 Oximetry Medical Decision Making - Medical Decision Making This is a 19-year-old female who presents to the emergency department for left- sided facial pain. Was pt. sent in by a medical professional or institution? @ -No Did you speak to anyone other than the patient for history? @ -No Did you review nursing and triage notes? @ -Yes, and I agree, it is accurate with regards to the patient's symptoms. Were old charts reviewed? @ -No Differential Diagnosis? @ -Dental abscess, TMJ, trigeminal neuralgia, this is not meant to be an all- inclusive list. EKG interpreted by me (3pts min.)? @ -Not obtained X-rays interpreted by me (1pt min.)? @ -Not obtained CT interpreted by me (1pt min.)? @ -Not obtained U/S interpreted by me (1pt. min.)? @ -Not obtained What testing was considered but not performed? (CT, X-rays, U/S, labs)? Why? @ -None What meds were considered but not given? Why? @ -None Did you discuss the management of the patient with other professionals? @ -No Did you reconcile home meds? @ -No Was smoking cessation discussed for >3mins.? @ -No Was critical care preformed (if so, how long)? @ -No Were there social determinants of health that impacted care today? How? (Homelessness, low income, unemployed, alcoholism, drug addiction, transportation, low edu. Level, literacy, decrease access to med. care, half-way, rehab)? @ -No Was there de-escalation of care discussed even if they declined? (Discuss DNR or withdrawal of care, Hospice)? @ -No What co-morbidities impacted this encounter? (DM, HTN, Smoking, COPD, CAD, Cancer, CVA, Hep., AIDS, mental health diagnosis, sleep apnea, morbid obesity)? @ -Fibromyalgia Was patient admitted / discharged? @ -Discharged. Physical examination was relatively unremarkable. She had no erythema, palpable dental abscess, or other gross irregularities. However, the colicky nature of her pain hitting her in waves was more so consistent with something like trigeminal neuralgia. However, given her age it is also possible that this is all stemming from dental pain. Advised that we can treat her for both. Pain was managed in the emergency department. Augmentin prescribed for potential dental infection and Toradol was also prescribed for pain control. She was also started on carbamazepine for possible trigeminal neuralgia component. Advised she follow-up with her PCP for reevaluation and discussion of additional testing or medication options if necessary. Patient discharged home in stable condition. Case discussed with ED attending Dr. Lal. Return precautions reviewed in depth, the patient is instructed to return to the emergency department with any new, worsening, or concerning symptoms. Patient verbalized understanding. Undiagnosed new problem with uncertain prognosis? @ -None Drug Therapy requiring intensive monitoring for toxicity (Heparin, Nitro, Insulin, Cardizem)? @ -None Were any procedures done? @ -None Diagnosis/symptom? @ -Left-sided facial pain, trigeminal neuralgia Acute, or Chronic, or Acute on Chronic? @ -Acute Uncomplicated (without systemic symptoms) or Complicated (systemic symptoms)? @ -Uncomplicated Side effects of treatment? @ -None Exacerbation, Progression, or Severe Exacerbation] @ -Not applicable Poses a threat to life or bodily function? @ -No Disposition Clinical Impression: Left-sided face pain, Trigeminal neuralgia of left side of face Disposition: HOME SELF-CARE Instructions (If sedation given, give patient instructions): Trigeminal Neuralgia (ED) Additional Instructions: Return to the emergency department with any new, worsening, or concerning symptoms. Take the antibiotic as prescribed for 7 days. Take the Toradol with Tylenol as needed for pain relief. If you choose to take the Toradol, do not take any other anti-inflammatories such as ibuprofen, take one or the other. Start taking the carbamazepine twice daily. You can double the dose each day until you find improvement. Do not take more than 600 mg twice daily (1200mg/day). If you find this helpful, you may need to be on it long-term in which case you can discuss a refill with your primary care provider. Prescriptions: Amoxic-Pot Clav 875-125Mg [Augmentin 875-125] 1 tab PO Q12HR 7 Days #14 tab carBAMazepine [TEGretol] 200 mg PO Q12H #30 tablet Ketorolac [Toradol] 10 mg PO Q6HR PRN #15 tab PRN Reason: Pain Is patient prescribed a controlled substance at d/c from ED?: No Referrals: Katrina Borja DO [Primary Care Provider] - 1-2 days Time of Disposition: 04:29
[2025-05-29] MEDS: CYCLOBENZAPRINE 10 MG TAB PO STA (03:03)
[2025-05-29] MEDS: KETOROLAC 15 MG/ML 1 ML VIAL IM STA (03:04)
[2025-05-29] MEDS: MORPHINE SULFATE 4 MG/ML SYRINGE IM STA (03:05)
[2025-05-29] MEDS: HYDROmorphone 1 MG/ML 1 ML SYRINGE IM STA ×2 (03:51→04:35)
[2025-05-29] MEDS: AMOXIC-POT CLAV 875-125MG 1 EACH TAB PO STA (03:52)
[2025-05-29] MEDS: ACET/COD 300 MG/30 MG STARTER PACK 6 TAB BTL PO STA (04:34)
[2025-05-29] MEDS: carBAMazepine 200 MG TAB PO STA (04:34)
[2025-05-29 04:45] VITALS: BP 120/75; PULSE 66; RESP 18; TEMP 97.8
== END 2025-05-29 04:44 | disposition home or self-care (01) ==
LOC: EC 02:32
DX: G50.0 Trigeminal neuralgia (principal); F17.290 Nicotine dependence, other tobacco product, uncomplicated; M79.7 Fibromyalgia; Z88.6 Allergy status to analgesic agent; Z88.8 Allergy status to other drugs, medicaments and biological substances
CPT/HCPCS: 99283; 96372; J2270; J1171; J8540; J1885